=== PATIENT | female | born 1990 | race Two or more races ===

== ENCOUNTER 2018-09-29 07:05 | Inpatient (IN) | payer OTHER ==
[~2018-09-29] VITALS: Ht 160 cm; Wt 69.9 kg
[~2018-09-29 07:05] MED LIST: FOLIC ACID1 MG; PRENATAL + DHA1 EACH
== END 2018-10-01 10:35 | disposition home or self-care (01) | DRG 807 ==
LOC: OB/GYN 07:05 → LDR 07:05 → OB/GYN 16:13
PROVIDERS: ADMIT Obstetrics & Gynecology
PROC: 10E0XZZ Delivery of Products of Conception, External Approach (ICD-10-PCS; principal; 2018-09-29)
PROC: 4A1HXCZ Monitoring of Products of Conception, Cardiac Rate, External Approach (ICD-10-PCS; 2018-09-29)
PROC: 0HQ9XZZ Repair Perineum Skin, External Approach (ICD-10-PCS; 2018-09-29)
DX: O70.0 First degree perineal laceration during delivery (principal); Z37.0 Single live birth; Z3A.39 39 weeks gestation of pregnancy; Z22.330 Carrier of Group B streptococcus